=== PATIENT | male | born 1990 | race Caucasian/White ===

== ENCOUNTER 2019-09-12 10:47 | Emergency (ER) | payer OTHER, SELFPAY ==
--- NOTE | ~2019-09-12 | XR_ITS ---
EXAMINATION: XR foot LT min 3V EXAM DATE: 09/12/2019 11:11 INDICATION: Initial encounter following injury, with pain of the left foot dorsally. TECHNIQUE: Left foot dorsoplantar, lateral and oblique projections obtained and reviewed. There is n o prior study for comparison. FINDINGS: Acute closed posttraumatic minimally displaced fractures extending obliquely through the le ft 3rd and 4th metacarpal necks. There is overlying soft tissue swelling. Phalanges, tarsal bones are unremarkable. IMPRESSION: Acute left 3rd, 4th metacarpal neck fractures, minimal displacement. Reviewed, dictated and finalized at location B. IMPRESSION: Acute left 3rd, 4th metacarpal neck fractures, minimal displacemen tDerrick
[2019-09-12 11:00] VITALS: BP 132/71; PULSE 83; RESP 16; TEMP 36.8; O2SAT 100
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
== END 2019-09-12 11:40 | disposition home or self-care (01) ==
PROVIDERS: Emergency Provider Nurse Practitioner; PCP Family Medicine Adolescent Medicine
DX: S92.902A Unspecified fracture of left foot, initial encounter for closed fracture (principal); V29.3XXA Motorcycle rider (driver) (passenger) injured in unspecified nontraffic accident, initial encounter
CPT/HCPCS: 73630; 99214; G0463

== ENCOUNTER 2020-05-08 11:38 | Emergency (ER) | payer BC, SELFPAY ==
--- NOTE | ~2020-05-08 | XR_ITS ---
EXAMINATION: XR finger 2nd LT min 2V EXAM DATE: 05/08/2020 12:11 INDICATION: Pain left 2nd MCP area, states injury 8 days ago. TECHNIQUE: Left 2nd finger frontal, lateral and oblique projections obtained and reviewed. There i s no prior study for comparison. FINDINGS: There are no acute left 2nd finger fractures or dislocations identified. There is no subcu taneous gas. There is soft tissue swelling over the dorsal aspect proximal interphalangeal joint. T here are no radiopaque foreign bodies. IMPRESSION: 1. Left 2nd finger exam without acute osseous findings. 2. Soft tissue swelling. Reviewed, dictated and finalized at location B. [employer]VING AP[employer]ICE
[2020-05-08 11:55] VITALS: BP 142/81; PULSE 74; RESP 16; TEMP 36.8; O2SAT 98
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
== END 2020-05-08 12:38 | disposition home or self-care (01) ==
PROVIDERS: Emergency Provider Registered Nurse
DX: S60.022A Contusion of left index finger without damage to nail, initial encounter (principal); X58.XXXA Exposure to other specified factors, initial encounter; K50.90 Crohn's disease, unspecified, without complications; F43.10 Post-traumatic stress disorder, unspecified
CPT/HCPCS: 73140; 99213; G0463

== ENCOUNTER 2020-06-14 15:32 | Emergency (ER) | payer BC, SELFPAY ==
[2020-06-14 15:56] VITALS: BP 115/59; PULSE 67; RESP 16; TEMP 36.7; O2SAT 99
--- NOTE | 2020-06-14 16:02 | ED.ANIMALBIT ---
HPI - Animal Bite General Chief Complaint: Animal Bite Stated Complaint: cat bite Time Seen by Provider: 06/14/20 16:05 Source: patient and RN notes reviewed Mode of arrival: ambulatory Limitations: no limitations History of Present Illness HPI narrative: 30-year-old male presents concern for cat bite. Reports cat bites to bilateral hands that he sustained 2 days ago. Reports he noticed the bite on his right hand was surrounded by redness, swelling, pain seem to be worsening over the last 2 days. He reports he has been taking ibuprofen which eases the pain. He denies any fever, body aches, chills. Reports sweats while he was sleeping last night. complaint: animal bite Related Data Home Medications Medication Instructions Recorded Confirmed pantoprazole 40 mg PO DAILY 06/14/20 06/14/20 sertraline 100 mg PO DAILY 06/14/20 06/14/20 Allergies Allergy/AdvReac Type Severity Reaction Status Date / Time No Known Allergies Allergy Mild Verified 06/14/20 16:09 Review of Systems Review of Systems: Narrative: CONSTITUTIONAL: Denies malaise, chills, sweats, or fever. CARDIOVASCULAR: Denies chest pain, palpitations, or edema. RESPIRATORY: Denies cough or dyspnea. GASTROINTESTINAL: Denies abdominal pain, nausea, vomiting SKIN: Reports animal puncture wound on the right hand surrounded by redness, warmth, tenderness MUSCULOSKELETAL: Denies musculoskeletal pain or myalgia. All systems reviewed & are unremarkable except as noted in HPI and below [facility] Past Medical History Medical History (Updated 06/14/20 @ 16:07 by Annie Hand NP) Crohn disease Hx of ulcerative colitis Metatarsal bone fracture PTSD (post-traumatic stress disorder) Social History Social History Smoking status: Never smoker Second hand tobacco smoke exposure: No Alcohol intake: current Drinks per week: 3 Substance use: never Additional living arrangements comments: Additional occupation/education comments: [employer] Gender identity (if verbalized by the patient): Male Spiritual care concerns: No Agree to blood products: No Comments At time of signature, agree with nursing past medical, surgical, social and family history. There is no relevant family history pertinent to the presenting complaint Exam Narrative: Exam Narrative: GENERAL: Well-appearing, well-nourished, and in no acute distress. HEAD: Normocephalic EYES: PERRLA, conjunctivae clear ENT: Nares clear. Mucous membranes moist.. NECK: Supple. CHEST: No respiratory distress. Clear to auscultation. No bony deformities, no asymmetry. Speaks in full sentences. HEART: Regular rate and rhythm. No murmur heard. Normal peripheral pulses. EXTREMITIES: Bilateral upper extremities have normal range of motion, normal strength and sensation. SKIN: Warm, dry. Erythema, warmth, mild edema surrounding puncture wound on the dorsal aspect of the right hand between digits 1 and 2 NEURO: Alert and oriented x3. PSYCH: Normal mood and affect Course Course Emergency Course: Patient is aware of diagnosis, understands and agrees to treatment plan. Anticipatory guidance given. Patient agrees to follow-up as directed and is aware of reasons to seek care at the emergency department. Portions of this record may have been created with voice recognition software Vital Signs Vital signs: Vital Signs Temperature 98.1 F 06/14/20 15:56 Pulse Rate 67 06/14/20 15:56 Respiratory Rate 16 06/14/20 15:56 Blood Pressure 115/59 L 06/14/20 15:56 Pulse Oximetry 99 06/14/20 15:56 Temperature 98.1 F 06/14/20 15:56 Pulse Rate 67 06/14/20 15:56 Respiratory Rate 16 06/14/20 15:56 Blood Pressure 115/59 L 06/14/20 15:56 Pulse Oximetry 99 06/14/20 15:56 Reviewed. MDM - Animal Bite MDM Narrative Medical decision making narrative: Exam findings show no acute concerns or changes; patient is non-toxic a
== END 2020-06-14 16:16 | disposition home or self-care (01) ==
PROVIDERS: Emergency Provider Nurse Practitioner; PCP Family Medicine Adolescent Medicine
DX: S61.431A Puncture wound without foreign body of right hand, initial encounter (principal); W55.01XA Bitten by cat, initial encounter; K50.90 Crohn's disease, unspecified, without complications; F43.10 Post-traumatic stress disorder, unspecified
CPT/HCPCS: 99213; G0463